=== PATIENT | female | born 1950 | race Two or more races ===

== ENCOUNTER 2022-07-18 15:50 | Emergency (ER) | payer OTHER ==
[~2022-07-18] VITALS: Ht 157.5 cm; Wt 64.8 kg
[2022-07-18 16:54] VITALS: BP 95/52
[2022-07-18] MEDS ORDERED: ACET1CAP14 PO (16:59)
[2022-07-18] MEDS ORDERED: ACETAMINOPHEN 500 MG TAB PO ONE (17:00)
== END 2022-07-18 17:23 | disposition home or self-care (01) ==
LOC: ER 15:50
DX: S39.012A Strain of muscle, fascia and tendon of lower back, initial encounter (principal); S30.0XXA Contusion of lower back and pelvis, initial encounter; W18.39XA Other fall on same level, initial encounter; Y93.89 Activity, other specified; Y92.89 Other specified places as the place of occurrence of the external cause; Y99.8 Other external cause status
CPT/HCPCS: 72110; 72220